=== PATIENT | female | born 1990 | race Two or more races ===

== ENCOUNTER 2018-05-07 00:11 | Emergency (ER) | payer OTHER ==
--- NOTE | 2018-05-07 00:19 | PDOC ---
History of Present Illness - History of Present Illness Initial Comments: 05/07/18 00:16 27 yo , aborta 1, at 23 wga, LMP 12/07/17, confirmed by TVUS with no significant pmh who p/w SWENSON, cough, fever. Patient reports 3 days of stable non productive cough, subjective fevers, tmax 98.0, and bifrontal, dull headache, with associated photphobia. SWENSON dull, radiating to posterior neck, with absent neck stiffness, nausea, phonophobia, lacrimation, convulsions, weakness, vision change, tinnitus. Pain not alleviated with Tylenol. Patient denies N/V, Palpitations, CP, SOB, urinary complaints, abdominal pain, diarrhea, constipation, hematuria, BPR, vaginal pain/bleeding/itching/discharge , lightheadedness, weakness, sensory changes. PMHx: as noted above ROS: as noted SHx: Denies Etoh, IVDA, tobacco use. F/w [employer] Work[employer]. Allergies: NKDA <Jaret Keys - Last Filed: 05/07/18 02:48> <Marguerite Aguilar - Last Filed: 05/09/18 12:22> - General Stated Complaint: COLD SYMPTOMS/HEADACHE Time Seen by Provider: 05/07/18 00:13 Past History <Jaret Keys - Last Filed: 05/07/18 02:48> <Marguerite Aguilar - Last Filed: 05/09/18 12:22> - Past Medical History Allergies/Adverse Reactions: Allergies Allergy/AdvReac Type Severity Reaction Status Date / Time No Known Allergies Allergy Verified 05/07/18 00:23 Home Medications: Ambulatory Orders NK [No Known Home Medication] 05/07/18 Review of Systems - Review of Systems Comments:: 05/07/18 00:16 GENERAL/CONSTITUTIONAL: + fever. No chills. No weakness. HEAD, EYES, EARS, NOSE AND THROAT: No change in vision. No ear pain or discharge. No sore throat. CARDIOVASCULAR: No chest pain or shortness of breath RESPIRATORY: +cough. No wheezing, or hemoptysis. GASTROINTESTINAL: No nausea, vomiting, diarrhea or constipation. GENITOURINARY: No dysuria, frequency, or change in urination. MUSCULOSKELETAL: No joint or muscle swelling or pain. No neck or back pain. SKIN: No rash NEUROLOGIC: + headache. No vertigo, loss of consciousness, or change in strength/sensation. ENDOCRINE: No increased thirst. No abnormal weight change HEMATOLOGIC/LYMPHATIC: No anemia, easy bleeding, or history of blood clots. ALLERGIC/IMMUNOLOGIC: No hives or skin allergy. <MassimoJaret - Last Filed: 05/07/18 02:48> *Physical Exam - Physical Exam Comments: 05/07/18 00:16 GENERAL: Awake, alert, and fully oriented, in no acute distress HEAD: No signs of trauma, normocephalic, atraumatic EYES: PERRLA, EOMI, sclera anicteric, conjunctiva clear ENT: Auricles normal inspection, hearing grossly normal, nares patent, oropharynx clear without exudates. Moist mucosa NECK: Normal ROM, supple, no lymphadenopathy, JVD, or masses LUNGS: No distress, speaks full sentences, clear to auscultation bilaterally HEART: Regular rate and rhythm, normal S1 and S2, no murmurs, rubs or gallops, peripheral pulses normal and equal bilaterally. ABDOMEN: Soft, nontender, normoactive bowel sounds. No guarding, no rebound. No masses EXTREMITIES : Normal inspection, Normal range of motion, no edema. No clubbing or cyanosis. NEUROLOGICAL: Cranial nerves II through XII grossly intact. Normal speech, normal gait, no focal sensorimotor deficits SKIN: Warm, Dry, normal turgor, no rashes or lesions noted <Garfield Keysson - Last Filed: 05/07/18 02:48> - Vital Signs Last Vital Signs Temp Pulse Resp BP Pulse Ox 97.8 F 81 18 114/61 100 05/07/18 00:23 05/07/18 00:23 05/07/18 00:23 05/07/18 00:23 05/07/18 00:23 <Marguerite Aguilar - Last Filed: 05/09/18 12:22> Moderate Sedation - Procedure Monitoring Vital Signs: Procedure Monitoring Vital Signs Temperature 97.8 F 05/07/18 00:23 Pulse Rate 81 05/07/18 00:23 Respiratory Rate 18 05/07/18 00:23 Blood Pressure 114/61 05/07/18 00:23 O2 Sat by Pulse Oximetry (%) 100 05/07/18 00:23 <Marguerite Aguilar - Last Filed: 05/09/18 12:22> ED Treatment Course - LABORATORY CBC & Chemistry Diagram: 05/07/18 01:00 05/07/18 01:00 <Jaret Keys - Last Filed: 05/07/18 02:48> - LABORATORY CBC & Chemistry Diagram: 05/07/18 01:00 05/07/18 01:00 - ADDITIONAL ORDERS Additional order review: 05/07/18 01:20 Urine Culture - Final Urine - Urine Clean Catch NO GROWTH OBTAINED 05/07/18 01:00 RBC 3.47 L MCV 94.3 MCHC 34.9 RDW 12.4 MPV 8.1 Neutrophils % 66.4 Lymphocytes % 21.4 Monocytes % 9.2 Eosinophils % 2.2 Basophils % 0.8 - Medications Given in the ED: ED Medications Discontinued Medications Generic Name Dose Route Start Last Admin Trade Name Freq PRN Reason Stop Dose Admin Acetaminophen 1,000 mg 05/07/18 00:41 05/07/18 01:32 Ofirmev Injection - IVPB 05/07/18 00:42 1,000 mg ONCE ONE Administration Diphenhydramine HCl 12.5 mg 05/07/18 00:41 05/07/18 01:32 Benadryl Injection - IVPUSH 05/07/18 00:42 12.5 mg ONCE ONE Administration Sodium Chloride 1,000 mls @ 1,000 mls/hr 05/07/18 00:41 05/07/18 01:32 Normal Saline - IV 05/07/18 01:40 1,000 mls/hr ASDIR STA Administration <Kingsley Aguilarie Charanjit - Last Filed: 05/09/18 12:22> Medical Decision Making - Medical Decision Making 05/07/18 00:30 27 yo , aborta 1, at 23 wga, LMP 12/07/17, confirmed by TVUS with no significant pmh who p/w SWENSON, cough, fever. + 3 days of stable non productive cough, subjective fevers, tmax 98.0, and bifrontal, dull headache. Vitals wnl, AF, A&Ox3. Denies N/V, abdominal pain, vaginal bleeding, lightheadedness, weakness, sensory change, convulsions. Physical exam unremarkable. Low suspicion of preclampsia. No evidence of meningitis, SAH, dural venous thrombosis. ED Course: CBC,CMP, Influenza 05/07/18 00:43 Tylenol, NS, Diphenhydramine 05/07/18 01:02 05/07/18 01:41 CBC,CMP: Unremarkable UA: Neg Flu: Neg 05/07/18 01:45 SWENSON improved Patient to go to L&D for monitoring 05/07/18 02:48 Patient evaluated / L&D consult, FHR ~130-140 Stable for d/c with return precautions Advised to f/u with [employer] Work[employer] PMD. <Jaret Keys - Last Filed: 05/07/18 02:48> *DC/Admit/Observation/Transfer - Discharge Dispostion Decision to Admit order: No - Attestations Physician Attestion: 05/07/18 00:16 I attest to the information provided in this note. <Jaret Keys - Last Filed: 05/07/18 02:48> <Marguerite Aguilar - Last Filed: 05/09/18 12:22> Diagnosis at time of Disposition: URI (upper respiratory infection) Headache in Qualifiers: Trimester: second trimester Qualified Code(s): O26.892 - Other specified related conditions, second trimester - Discharge Dispostion Disposition: HOME Condition at time of disposition: Stable - Patient Instructions Printed Discharge Instructions: DI for Common Cold Additional Instructions: Please return to the emergency department with any new or worsening symptoms or concerns. Please follow up with your primary care physician within 72 hours.
[2018-05-07 00:33] VITALS: BP 114/61; PULSE 81; TEMP 97.8; BMI 29.7
--- NOTE | 2018-05-07 00:40 | PDOC ---
Attending Attestation - Resident Resident Name: Jaret Keys - ED Attending Attestation I have performed the following: I have examined & evaluated the patient, The case was reviewed & discussed with the resident, I agree w/resident's findings & plan - HPI HPI: 05/07/18 01:27 [id number] 23 weeks A1, with no significant past medical history, who presents to the emergency department with, 3 days dull headache, cough, and subjective fevers (Tmax 98F). She denies recent photophobia, phonophobia, or dizziness. She denies recent nausea, vomit, diarrhea or constipation. She denies recent dysuria, frequency, urgency or hematuria. She denies recent chest pain or shortness of breath. no AP or VB No sick contacts or travel. No new changes in medications. Allergies: NKA Past Medical History: None Social history: Lives with family. No smoking. No alcohol. No illicit drugs. Surgical history: None LMP: 12/07/17 - Physicial Exam PE: 05/07/18 01:27 NAD, well appearing, PERRL, EOMI, MMM, nl conjunctiva, anicteric; neck supple. lungs clear, RRR, abdomen soft nontender. MARTINES x4, no focal neuro deficits. No peripheral edema. normal color for ethnicity, WWP. - Medical Decision Making 05/07/18 01:27 hpi as documented VS wnl, no fever well appearing, c/o sinus congestion IV tylenol and fluids for headache basic labs and lytes wnl, reassuring UA neg for infection. flu neg. no AP or VB likely viral syndrome, URI sx, supportive care and hydration, tylenol for pain PCP/OB followup 05/07/18 01:42
[2018-05-07] MEDS ORDERED: ACETAMINOPHEN 1000 MG/100 ML VIAL (NON FORMULARY) IVPB ONE (00:41)
[2018-05-07] MEDS ORDERED: SODIUM CHLORIDE 1,000 ML IV STA (00:41)
[2018-05-07 01:09] LABS: BASO % 0.8 % (0-2.0); EOS % 2.2 % (0-4.5); HEMATOCRIT 32.7 % (32.4-45.2); HEMOGLOBIN 11.4 GM/dL (10.7-15.3); LYMPH % 21.4 % (8-40); MCH 32.9 pg (25.7-33.7); MCHC 34.9 g/dl (32.0-36.0); MEAN CELL VOLUME 94.3 fl (80-96); MEAN PLT VOLUME 8.1 fl (7.5-11.1); MONO % 9.2 % (3.8-10.2); NEUT % 66.4 % (42.8-82.8); PLATELET COUNT 251 K/MM3 (134-434); RBC 3.47 M/mm3 (3.60-5.2); RDW 12.4 % (11.6-15.6); WHITE BLOOD COUNT 9.6 K/mm3 (4.0-10.0)
[2018-05-07] MEDS ORDERED: ACETAMINOPHEN INJECTION 100 ML IVPB ONE (01:10)
[2018-05-07 01:27] LABS: URINE APPEARANCE CLEAR; URINE BILIRUBIN NEGATIVE (<2.0 mg/dL); URINE COLOR LTYELLOW; URINE GLUCOSE (UA) NEGATIVE (NEGATIVE); URINE KETONE NEGATIVE (NEGATIVE); URINE LEUK ESTERASE NEGATIVE (NEGATIVE); URINE NITRITE NEGATIVE (NEGATIVE); URINE PROTEIN NEGATIVE (NEGATIVE); URINE UROBILINOGEN NEGATIVE mg/dL (0.2-1.0)
[2018-05-07 01:40] LABS: ALBUMIN 2.5 g/dl (3.4-5.0); ALK PHOS 61 U/L (45-117); ANION GAP 6 MMOL/L (8-16); BILIRUBIN,TOTAL 0.2 mg/dL (0.2-1); BLOOD UREA NITROGEN 9 mg/dL (7-18); CALCIUM 8.3 mg/dL (8.5-10.1); CHLORIDE 106 mmol/L (98-107); CO2 25 mmol/L (21-32); CREATININE 0.4 mg/dL (0.55-1.3); GLUCOSE,RANDOM 90 mg/dL (74-106); SGOT/AST 12 U/L (15-37); SGPT/ALT 14 U/L (13-61); SODIUM 137 mmol/L (136-145); TOT PROT 5.8 g/dl (6.4-8.2)
== END 2018-05-07 03:17 | disposition home or self-care (01) ==
LOC: JER 00:11
PROC: 3E033GC Introduction of Other Therapeutic Substance into Peripheral Vein, Percutaneous Approach (ICD-10-PCS; principal; 2018-05-07)
PROC: 3E033NZ Introduction of Analgesics, Hypnotics, Sedatives into Peripheral Vein, Percutaneous Approach (ICD-10-PCS; 2018-05-07)
DX: O26.892 Other specified pregnancy related conditions, second trimester (principal); R51 Headache; O99.512 Diseases of the respiratory system complicating pregnancy, second trimester; J06.9 Acute upper respiratory infection, unspecified; Z3A.23 23 weeks gestation of pregnancy
CPT/HCPCS: 36415; 80053; 81003; 85025; 87086; 87804; 96374; 96375; 99281-25; J0131; J7030

== ENCOUNTER 2018-09-01 06:20 | Inpatient (IN) | payer OTHER ==
[2018-09-01] MEDS ORDERED: OXYTOCIN 20 UNITS in 0.9% NS 20 UNIT/1,000 ML INFUS.BAG IV ONE (07:17)
[2018-09-01 07:43] VITALS: BMI 38.3
[2018-09-01] MEDS ORDERED: ePHEDrine SULFATE 50 MG/1 ML AMPULE ONE (08:05)
[2018-09-01] MEDS ORDERED: morphine SULFATE/Preservative Free 0.5 MG/ML (1cc Syringe) ONE (08:05)
--- NOTE | 2018-09-01 08:07 | HP ---
Past Medical History - Admission Chief Complaint: Elective History of Present Illness: 28 yo @ 39 weeks gestation, EDC 09/08/18, is pre op for primary . Patient admits to have hip problem and cannot push; prior shoulder dystocia with last . History Source: Patient Limitations to Obtaining History: No Limitations - Past Medical History ...: 3 ...Para: 1 ...Term: 1 ...: 0 ...Spon : 1 ...Induced : 0 ...Multiple Gestation: 0 ... Weeks Gestation by Dates: 39.0 ...EDC by Sono: 09/08/18 - Past Surgical History Past Surgical History: Yes: None Hx Myomectomy: No Hx Transabdominal Cerclage: No - Smoking History Smoking history: Never smoked Have you smoked in the past 12 months: No - Alcohol/Substance Use Hx Alcohol Use: No - Social History Usual Living Arrangement: Yes: With Significant Other History of Recent Travel: No Home Medications - Allergies Allergies/Adverse Reactions: Allergies Allergy/AdvReac Type Severity Reaction Status Date / Time No Known Allergies Allergy Verified 09/01/18 07:29 - Home Medications Home Medications: Ambulatory Orders Pnv No.95/Ferrous Fum/Folic AC [ Formula] 1 each PO DAILY 07/02/18 Family Disease History - Family Disease History Family History: Unremarkable Review of Systems - Review of Systems Constitutional: reports: No Symptoms Eyes: reports: No Symptoms HENT: reports: No Symptoms Neck: reports: No Symptoms Cardiovascular: reports: No Symptoms Respiratory: reports: No Symptoms Gastrointestinal: reports: No Symptoms Genitourinary: reports: Pain Breasts: reports: No Symptoms Reported Musculoskeletal: reports: No Symptoms Integumentary: reports: No Symptoms Neurological: reports: No Symptoms Endocrine: reports: No Symptoms Hematology/Lymphatic: reports: No Symptoms Psychiatric: reports: No Symptoms Pain Intensity: 2 Physical Exam - Maternity Vital Signs: Vital Signs Temperature 98.2 F 09/01/18 07:35 Pulse Rate 90 09/01/18 07:35 Respiratory Rate 20 09/01/18 07:35 Blood Pressure 124/83 09/01/18 07:35 O2 Sat by Pulse Oximetry (%) Constitutional: Yes: Well Nourished Eyes: Yes: Conjunctiva Clear HENT: Yes: Atraumatic Neck: Yes: Supple Cardiovascular: Yes: Regular Rate and Rhythm Lungs: Clear to auscultation - Abdominal Exam/OB Number of Fetuses: Single Presentation: Vertex - Vaginal Exam/OB Amniotic Membrane Status: Intact - Physical Exam ...Motor Strength: WNL Psychiatric: Yes: Alert, Oriented Problem List - Problems (1) Code(s): Z34.90 - ENCNTR FOR SUPRVSN OF NORMAL , UNSP, UNSP TRIMESTER Qualifiers: Weeks of gestation: 39 weeks Qualified Code(s): Z3A.39 - 39 weeks gestation of Assessment/Plan 39 weeks gestation Pre op for primary Prep and shave [place] catheter Consent signed Anesthesia to see patient
[2018-09-01] MEDS ORDERED: PROPOFOL 20 ML ONE (08:14)
[2018-09-01] MEDS ORDERED: ELECTROLYTE-148 SOLN 1,000 ML IV SCH ×2 (08:15)
[2018-09-01] MEDS ORDERED: SUCCINYLCHOLINE CHLORIDE 200 MG/10 ML VIAL ONE ×3 (08:16)
[2018-09-01] MEDS ORDERED: CITRIC ACID/SODIUM CITRATE 30 ML UNIT-DOSE CUP PO ONE (08:30)
[2018-09-01] MEDS ORDERED: OXYTOCIN 10 UNITS/ML VIAL ONE (08:53)
[2018-09-01] MEDS ORDERED: METHYLERGONOVINE MALEATE 0.2 MG/1 ML AMP IM PRN (09:16)
--- NOTE | 2018-09-01 09:20 | OP ---
Operative Note - Note: Operative Date: 09/01/18 Pre-Operative Diagnosis: Elective Operation: Primary Findings: Baby girl in LOT position Post-Operative Diagnosis: Same as Pre-op Surgeon: Mindy Dobbs General Purchasing Agent: Cordell Spears Anesthesia: Spinal Specimens Removed: Placenta Estimated Blood Loss (mls): 600 Operative Report Dictated: Yes
[2018-09-01] MEDS: OXYTOCIN 20 UNITS in 0.9% NS 20 UNIT/1,000 ML INFUS.BAG IV SCH ×2 (10:06→17:57)
[2018-09-01] MEDS ORDERED: ONDANSETRON 4 MG/2 ML VIAL IVPUSH PRN (10:12)
[2018-09-01] MEDS ORDERED: IBUPROFEN 800 MG/8 ML IJ IVPB ONE (10:28)
[2018-09-01] MEDS: IBUPROFEN 800 MG/8 ML IJ IVPB PRN ×2 (10:38→19:48)
[2018-09-01] MEDS: PRENATAL VITAMINS W/ FOLIC ACID TABLET (FP) PO SCH (12:06)
[2018-09-01] MEDS: FERROUS SO4 325 MG TABLET (FP) PO SCH ×2 (12:06→16:57)
[2018-09-02] MEDS: SIMETHICONE 80 MG TAB.CHEW (FP) PO PRN ×5 (03:17→21:23)
[2018-09-02] MEDS: IBUPROFEN 600 MG TABLET (FP) PO PRN ×5 (03:18→21:22)
[2018-09-02] MEDS: oxyCODONE HCL 5 MG TABLET PO PRN ×5 (03:18→21:23)
[2018-09-02] MEDS: FERROUS SO4 325 MG TABLET (FP) PO SCH ×2 (08:03→17:10)
[2018-09-02 08:06] LABS: BASO % 0.1 % (0-2.0); EOS % 1.1 % (0-4.5); HEMATOCRIT 28.2 % (32.4-45.2); HEMOGLOBIN 9.3 GM/dL (10.7-15.3); LYMPH % 13.8 % (8-40); MCH 29.6 pg (25.7-33.7); MEAN CELL VOLUME 89.6 fl (80-96); MEAN PLT VOLUME 8.1 fl (7.5-11.1); PLATELET COUNT 240 K/MM3 (134-434); RBC 3.15 M/mm3 (3.60-5.2); RDW 14.5 % (11.6-15.6); WHITE BLOOD COUNT 10.6 K/mm3 (4.0-10.0)
--- NOTE | 2018-09-02 08:14 | PN ---
Progress Note (short form) - Note Progress Note: Post op day#1.S/P C section under spinal anesthesia with duramorph uneventful.Patient stable and c/o little pain for she is on medication.No any anesthesia related problem.Patient DC from the anesthesia care.
--- NOTE | 2018-09-02 08:29 | PN ---
Post Progress Note - Subjective Subjective: 28 yo Para 2 status post primary , seen and evaluated. She c/o gas pain. Post Day: 2 Type of Delivery: Primary C/S Vital Signs: Vital Signs Temperature 98.5 F 09/02/18 06:00 Pulse Rate 100 H 09/02/18 06:00 Respiratory Rate 18 09/02/18 06:00 Blood Pressure 140/84 09/02/18 06:00 O2 Sat by Pulse Oximetry (%) 100 09/01/18 10:57 Breast Exam: Yes: Soft Uterus: Yes: Fundus Firm Incision: Yes: Dressing dry and intact Abdomen/GI: Yes: Abdomen soft, Tolerating PO Lochia: Yes: Rubra Lochia, amount: Small Extremities: Yes: Calves non-tender Activity: Ambulating Problem List - Problems (1) Code(s): Z34.90 - ENCNTR FOR SUPRVSN OF NORMAL , UNSP, UNSP TRIMESTER Qualifiers: Weeks of gestation: 39 weeks Qualified Code(s): Z3A.39 - 39 weeks gestation of (2) Status post primary low transverse section Code(s): Z98.891 - HISTORY OF UTERINE SCAR FROM PREVIOUS SURGERY Assessment/Plan Status post primary Ambulation Analgesia as needed Continue routine post op care
[2018-09-02] MEDS: PRENATAL VITAMINS W/ FOLIC ACID TABLET (FP) PO SCH (09:15)
[2018-09-02] MEDS ORDERED: BISACODYL 10 MG SUPP.RECT RC PRN (09:17)
[2018-09-03] MEDS: IBUPROFEN 600 MG TABLET (FP) PO PRN ×5 (01:06→23:11)
[2018-09-03] MEDS: oxyCODONE HCL 5 MG TABLET PO PRN ×5 (01:07→23:16)
[2018-09-03] MEDS: SIMETHICONE 80 MG TAB.CHEW (FP) PO PRN ×5 (01:07→23:10)
[2018-09-03] MEDS: FERROUS SO4 325 MG TABLET (FP) PO SCH ×2 (08:39→17:28)
[2018-09-03] MEDS: PRENATAL VITAMINS W/ FOLIC ACID TABLET (FP) PO SCH (10:36)
--- NOTE | 2018-09-03 11:00 | PN ---
Post Note - Post Date of Delivery: 09/01/18 Post Day: 2 Vital Signs: Vital Signs - 24 hr 09/02/18 09/03/18 22:00 08:51 Temperature 99.2 F 97.1 F L Pulse Rate 100 H 100 H Respiratory 18 18 Rate Blood Pressure 113/61 134/71 - Subjective Subjective: No Complaints - Objective Afebrile: Yes Breast: Not engorged Abdomen: Soft, Non-tender, Other (incision intact no drainage) Uterus: Fundus firm Vagina: Scant lochia Extremities: Non-tender - Assessment/Plan (1) Status post primary low transverse section Assessment: Other (POD2) Plan: Routine Care
--- NOTE | 2018-09-04 06:37 | DS ---
Physical Exam-REHAB DEPARTMENT MANAGER Vital Signs: Vital Signs Temperature 98.8 F 09/03/18 22:00 Pulse Rate 92 H 09/03/18 22:00 Respiratory Rate 18 09/03/18 22:00 Blood Pressure 123/71 09/03/18 22:00 O2 Sat by Pulse Oximetry (%) 100 09/03/18 09:00 Constitutional: Yes: Well Nourished, No Distress Gastrointestinal: Yes: WNL ....Post : Yes: Uterus firm, Uterus non-tender Breast(s): Yes: WNL Musculoskeletal: Yes: WNL Labs: CBC, BMP 09/02/18 07:00 Delivery - Delivery Section: Low Flap Transverse Type of Anesthesia: Spinal Episiotomy/Laceration: None EBL (cc): 600 Delivery, Single - Stages of Labor Date of Delivery: 09/01/18 Time of Delivery: 08:42 Time Placenta Delivered: 08:43 - Condition of Infant Teacher/Memorial Designer Present: Yes Name: Rocio Grace Infant Gender: Female Weight: 7 lb 6 oz Position: Left Total Hours ROM (Hrs/Mins): 0/01 - 1 Minute Total Score: 9 5 Minutes Total Score: 9 - [place] Feeding Plan Initial Plan: Elected not to breastfeed exclusively throughout hospitalization Discharge Summary Reason For Visit: ADMIT-C/S Current Active Problems (Acute) Status post primary low transverse section (Acute) Procedures: Principal: Low transverse Section Condition: Good - Instructions Referrals: Mindy Dobbs MD [Staff Physician] - Disposition: HOME - Home Medications Comprehensive Discharge Medication List: Ambulatory Orders Pnv No.95/Ferrous Fum/Folic AC [ Formula] 1 each PO DAILY 07/02/18 Ibuprofen [Motrin -] 600 mg PO QID #28 tablet 09/04/18
[2018-09-04 07:27] LABS: BASO % 0.3 % (0-2.0); EOS % 2.9 % (0-4.5); HEMATOCRIT 27.2 % (32.4-45.2); HEMOGLOBIN 9.1 GM/dL (10.7-15.3); LYMPH % 28.3 % (8-40); MCH 29.9 pg (25.7-33.7); MCHC 33.5 g/dl (32.0-36.0); MEAN CELL VOLUME 89.5 fl (80-96); MEAN PLT VOLUME 8.3 fl (7.5-11.1); MONO % 8.1 % (3.8-10.2); NEUT % 60.4 % (42.8-82.8); PLATELET COUNT 274 K/MM3 (134-434); RBC 3.04 M/mm3 (3.60-5.2); RDW 14.7 % (11.6-15.6); WHITE BLOOD COUNT 6.5 K/mm3 (4.0-10.0)
[2018-09-04 08:11] VITALS: BP 130/74; PULSE 90; TEMP 98.5
[2018-09-04] MEDS: FERROUS SO4 325 MG TABLET (FP) PO SCH (08:23)
[2018-09-04] MEDS: IBUPROFEN 600 MG TABLET (FP) PO PRN (08:23)
[2018-09-04] MEDS: oxyCODONE HCL 5 MG TABLET PO PRN (08:26)
[2018-09-04] MEDS: SIMETHICONE 80 MG TAB.CHEW (FP) PO PRN (08:27)
[2018-09-04] MEDS: PRENATAL VITAMINS W/ FOLIC ACID TABLET (FP) PO SCH (09:22)
--- NOTE | 2018-09-05 19:20 | PATH ---
Surgical Pathology Report Patient Name: CLAYTON SALAZAR Med. Rec. #: [id number] /Age/Gender: 1990 (Age: 28) / F Account: [id number] Location: [facility] OBS/TACTICAL/MOBILE WATCH OFFICER Taken: 09/01/2018 Received: 09/02/2018 Reported: 09/05/2018 Physicians: Mindy Dobbs M.D. Specimen(s) Received PLACENTA Clinical History Final Diagnosis PLACENTA, SECTION: 544 G THIRD TRIMESTER PLACENTA WITH MARGINALLY INSERTED TRIVASCULAR UMBILICAL CORD AND UNREMARKABLE PLACENTAL MEMBRANES. Electronically Signed Lashonda Orantes M.D. Gross Description The specimen is received fresh labeled placenta and is a 544 gram, 18 x 17 x 2.3 cm. placenta with attached membranes and umbilical cord. The attached membranes are clear and translucent. The umbilical cord measures 54 cm. in length and averages 1.2 cm. in diameter. The cord inserts marginally. No true knots or strictures are identified. Cut surface of the umbilical cord reveals 3 vessels. The surface is jackson-blue with minimal fibrin deposition and appropriate caliber vessels. The maternal surface is red-brown with focal defects. Sectioning reveals red-brown, spongy parenchyma. No lesions are identified. Supplies Packer sections are submitted in three cassettes as follows: 1- membrane rolls and umbilical cord; 2-3- full thickness sections of placenta. MLSZ/09/02/2018 sanml/09/02/2018
--- NOTE | 2018-09-06 21:09 | OP ---
DATE OF OPERATION: 09/01/2018 PREOPERATIVE DIAGNOSIS: Elective section at 39 weeks' gestation. POSTOPERATIVE DIAGNOSIS: Elective section at 39 weeks' gestation. PROCEDURE: Primary low transverse section and bilateral tubal ligation. SURGEON: Mindy Dobbs MD MEDICAL PHYSIOLOGIST: CHRISTINA Martin ANESTHESIA: Spinal. COMPLICATIONS: None. ESTIMATED BLOOD LOSS: 600 mL. DESCRIPTION OF PROCEDURE: Patient was taken to the operating room where spinal anesthesia was administered. Patient was then prepped and draped in proper sterile fashion. A Pfannenstiel skin incision was made and carried down through the underlying layer of fascia. The fascia was incised in the midline and extended laterally. The superior aspect of the fascial incision was then grasped with a Celia clamp, elevated, and the rectus muscles dissected off bluntly. Attention was then turned to the anterior aspect of the fascial incision which in a similar fashion was then grasped with Celia clamp, elevated, and the rectus muscle was dissected off bluntly. The rectus muscle was then in the midline, and the peritoneum identified and entered sharply with the Metzenbaum scissors. The peritoneal incision was extended superiorly and inferiorly with good visualization of the bladder. Then the vesicouterine peritoneum was then grasped with pickups and entered sharply with the Metzenbaum scissors. This incision was extended laterally, and a bladder flap created digitally. The bladder blade was then inserted, and the lower uterine segment was incised using a 10 blade. This incision was extended laterally, and the head was delivered atraumatically. Nose and mouth were suctioned and the cord clamped and cut. The was handed to the awaiting agronomy teacher. The placenta was removed manually. The uterus was exteriorized and cleared of all clots and debris. The uterine incision was repaired using 0 Biosyn in a running locked fashion. A second layer of the same suture was used as a means to provide excellent hemostasis. Then, the pelvis was then completely irrigated. The uterus was returned to the abdomen. The peritoneum was closed using 2-0 Biosyn. The fascia was reapproximated using 0 Vicryl in a running fashion. The skin was closed in a subcuticular fashion. Patient tolerated procedure well. Patient was then taken to PACU in stable condition. PATHOLOGY: Placenta. Nikki SZYMANSKI/[id number]
== END 2018-09-04 14:05 | disposition home or self-care (01) | DRG 540 ==
LOC: JLDR 06:20 → J3W 11:14
PROVIDERS: ADMIT Obstetrics & Gynecology; ATTEND Obstetrics & Gynecology
PROC: 10D00Z1 Extraction of Products of Conception, Low, Open Approach (ICD-10-PCS; principal; 2018-09-01)
DX: O82 Encounter for cesarean delivery without indication (principal); Z3A.39 39 weeks gestation of pregnancy; Z37.0 Single live birth
CPT/HCPCS: 36415; 80053; 85025; 85610; 85730; 86593; 86850; 86900; 86901; 88307-TC

== ENCOUNTER 2019-03-03 18:16 | Emergency (ER) | payer OTHER ==
[2019-03-03 18:50] VITALS: BP 115/70; PULSE 86; TEMP 98; BMI 25.8
--- NOTE | 2019-03-03 18:52 | PDOC ---
History of Present Illness - General Chief Complaint: Chest Pain Stated Complaint: CHEST PAIN History Source: Patient - History of Present Illness Initial Comments: 03/03/19 19:09 28 yo F no PMH presents with L sided chest pain and pressure that began 30 min prior to arrival.Pt states she was driving when she had this chest pressure rating 10/10 worse with breathing and did not change with position. Pt states the pain radiated to arm. She felt needles in her L arm. she also endorses nausea at the time, but no vomiting. Pt states at the moment the pain is improved at a 4/10. pt denies sob. pt denies a similar event in the past. pt states she was taking a muscle relaxant for back pain but last took this medication yesterday. Past History - Past Medical History Allergies/Adverse Reactions: Allergies Allergy/AdvReac Type Severity Reaction Status Date / Time No Known Allergies Allergy Verified 03/03/19 18:43 Home Medications: Ambulatory Orders Pnv No.95/Ferrous Fum/Folic AC [ Formula] 1 each PO DAILY 07/02/18 Ibuprofen [Motrin -] 600 mg PO QID #28 tablet 09/04/18 Anemia: No Asthma: No Cancer: No Cardiac Disorders: No COPD: No Diabetes: No HTN: No Seizures: No Thyroid Disease: No - Surgical History Abdominal Surgery: Yes (LIPO SUCTION) - Immunization History Immunization Up to Date: No - Psycho Social/Smoking Cessation Hx Smoking History: Unknown if ever smoked Have you smoked in the past 12 months: No Information on smoking cessation initiated: No Hx Alcohol Use: No Drug/Substance Use Hx: No Hx Substance Use Treatment: No *Physical Exam - Vital Signs Last Vital Signs Temp Pulse Resp BP Pulse Ox 98.0 F 86 18 115/70 100 03/03/19 18:42 03/03/19 18:42 03/03/19 18:42 03/03/19 18:42 03/03/19 18:42 ED Treatment Course - LABORATORY CBC & Chemistry Diagram: 03/03/19 18:54 03/03/19 18:54 Medical Decision Making - Medical Decision Making 03/03/19 19:42 28 yo F presenting with chest pain EKG : NSR, no ST changes -PERC 0 ; PE can be ruled out -CBC, CMP -cardiac profile 03/03/19 19:43 -CXR no acute process 03/03/19 20:05 - bmp reviewed, trop negative 03/03/19 22:06 -d dimer negative -rpt trop negative 03/03/19 22:43 Discharge - Discharge Information Problems reviewed: Yes Clinical Impression/Diagnosis: Chest pain Qualifiers: Chest pain type: chest pain on breathing Qualified Code(s): R07.1 - Chest pain on breathing; R07.81 - Pleurodynia Condition: Improved Disposition: HOME - Admission No - Follow up/Referral - Patient Discharge Instructions Patient Printed Discharge Instructions: DI for Atypical Chest Pain Additional Instructions: You came into the hospital for chest pain. Your EKG and blood work were within normal limits. You should follow up with your primary physician within 1 week to monitor your improvement. You may take ibuprofen for your pain every 8 hours. If you have new, worsening, or alarming symptoms please return to the ED. - Post Discharge Activity
[2019-03-03 19:29] LABS: BASO % 0.3 % (0-2.0); EOS % 1.3 % (0-4.5); MCH 29.5 pg (25.7-33.7); MCHC 32.6 g/dl (32.0-36.0); MEAN CELL VOLUME 90.6 fl (80-96); MEAN PLT VOLUME 8.3 fl (7.5-11.1); MONO % 7.4 % (3.8-10.2); PLATELET COUNT 335 K/MM3 (134-434); RBC 4.42 M/mm3 (3.60-5.2); RDW 14.1 % (11.6-15.6); WHITE BLOOD COUNT 7.9 K/mm3 (4.0-10.0)
--- NOTE | 2019-03-03 19:40 | PDOC ---
Attending Attestation - Resident Resident Name: Marisol Barton - ED Attending Attestation I have performed the following: I have examined & evaluated the patient, The case was reviewed & discussed with the resident, I agree w/resident's findings & plan, Exceptions are as noted - HPI HPI: 03/03/19 19:35 Ms. Llanos is a 28 yo F no PMH presents with L sided chest pain and pressure that began 30 min prior to arrival to the emergency department. Symptoms began while driving. Patient states her pain is located in the left anterior chest, pain is rated 10/ 10 and is worse with breathing No exertional changes. No changes with positioning. Pain radiates to the arm (+) nausea at the time, but no vomiting. Pt states at the moment the pain is improved at a 4/10. pt denies sob. pt denies a similar event in the past. pt states she was taking a muscle relaxant for back pain but last took this medication yesterday. - Physicial Exam PE: 03/03/19 19:40 GENERAL: The patient is in no acute distress. ENT: Ears normal, nares patent, oropharynx clear without exudates. Moist mucous membranes. No tonsillar enlargement, no exudates NECK: Normal range of motion, supple, no nuchal rigidity (+) LAD LUNGS: Breath sounds equal, clear to auscultation bilaterally. No wheezes, and no crackles. HEART:Regular rate and rhythm, normal S1 and S2 without murmur, rub or gallop. ABDOMEN: Soft, nontender, normoactive bowel sounds. EXTREMITIES: Normal range of motion, no edema. NEUROLOGICAL: Cranial nerves II through XII grossly intact. Normal speech. No focal neurological deficits. SKIN: Warm, Dry, normal turgor, no rashes or lesions noted. - Medical Decision Making 03/03/19 20:11 EKG: Twelve-lead EKG was performed and reviewed by me. There is normal sinus rhythm with a normal rate of 79. The axis is normal. The intervals are normal. There are no ST or T wave abnormalities. Impression: Normal twelve-lead EKG 03/03/19 20:13 03/03/19 20:15 Laboratory Tests 03/03/19 03/03/19 03/03/19 18:54 18:54 18:54 WBC 7.9 Hgb 13.0 Hct 40.0 D Plt Count 335 D INR 1.03 BUN 12.6 Creatinine 0.6 Troponin I < 0.02 Serum , Qual 03/03/19 18:54 WBC Hgb Hct Plt Count INR BUN Creatinine Troponin I Serum , Qual Negative Chest x-ray: No pleural effusion, no consolidation, mediastium is normal, no infiltrate 03/03/19 21:58 Laboratory Tests 03/03/19 18:00 D-Dimer < 215 Of note, after more history obtained, patient is concerned because she found out that another patient who had similar procedure to her ended up dying because "something went to her lung" Patient states pain currently is 07/2703/03/19 22:42 Laboratory Tests 03/03/19 21:58 Troponin I < 0.02 Clinical impression: Chest pain, initial presentation
[2019-03-03 19:52] LABS: INR 1.03 (0.83-1.09); PROTHROMBIN TIME (PATIENT) 12.2 SEC (9.7-13.0)
[2019-03-03 19:55] LABS: ACTIVATED PTT 32.3 SECONDS (25.2-36.5)
[2019-03-03 20:02] LABS: ALBUMIN 3.5 g/dl (3.4-5.0); ALK PHOS 66 U/L (45-117); ANION GAP 5 MMOL/L (8-16); BILIRUBIN,TOTAL < 0.1 mg/dL (0.2-1); BLOOD UREA NITROGEN 12.6 mg/dL (7-18); CALCIUM 8.9 mg/dL (8.5-10.1); CHLORIDE 108 mmol/L (98-107); CO2 25 mmol/L (21-32); CREATININE 0.6 mg/dL (0.55-1.3); GLUCOSE,RANDOM 88 mg/dL (74-106); MAGNESIUM 2.1 mg/dL (1.8-2.4); N-TERMINAL BNP 11.9 pg/ml (5-125); PHOSPHOROUS 3.7 mg/dL (2.5-4.9); POTASSIUM 4.1 mmol/L (3.5-5.1); SGOT/AST 14 U/L (15-37); SGPT/ALT 19 U/L (13-61); SODIUM 138 mmol/L (136-145); TOT PROT 6.7 g/dl (6.4-8.2)
[2019-03-03] MEDS ORDERED: IBUPROFEN 400 MG TABLET (FP) PO ONE ×2 (21:10→21:53)
--- NOTE | 2019-03-05 20:17 | EKG ---
Test Reason : Blood Pressure : / mmHG Vent. Rate : 079 BPM Atrial Rate : 079 BPM P-R Int : 198 ms QRS Dur : 086 ms QT Int : 370 ms P-R-T Axes : 039 061 030 degrees QTc Int : 424 ms NORMAL SINUS RHYTHM ST ELEVATION, CONSIDER EARLY REPOLARIZATION NO PREVIOUS ECGS AVAILABLE Confirmed by HUMERA RUFF MD ([id number]) on 03/05/2019 8:16:43 PM Referred By: Confirmed By:HUMERA RUFF MD
== END 2019-03-03 22:44 | disposition home or self-care (01) ==
LOC: JER 18:16
DX: R07.81 Pleurodynia (principal); R07.1 Chest pain on breathing
CPT/HCPCS: 36415; 71045-TC-FY; 80053; 83735; 83880; 84100; 84484; 84703; 85025; 85379; 85610; 85730; 93005; 93010; 99285-25

== ENCOUNTER 2020-05-06 14:19 | Emergency (ER) | payer SELFPAY ==
[2020-05-06 15:00] VITALS: BP 107/73; PULSE 72; TEMP 98.6; BMI 28.2
[2020-05-06 16:14] LABS: THROAT:GRP A STREP ANTIGEN Negative (Negative)
== END 2020-05-06 16:21 | disposition home or self-care (01) ==
LOC: JER 14:19
DX: R51.9 Headache, unspecified (principal); J02.9 Acute pharyngitis, unspecified
CPT/HCPCS: 87070; 87880; 99284-25; C9803; U0003

== ENCOUNTER 2022-03-23 19:36 | Emergency (ER) | payer OTHER ==
[2022-03-23 19:45] VITALS: BP 111/74; PULSE 93; RESP 20; TEMP 98.4; BMI 32.3
[2022-03-23 21:03] LABS: EPI CELLS 1 /uL (0-25.1); HYALINE CASTS 1 /uL (0-3.1); URINE APPEARANCE CLOUDY; URINE BACTERIA >9,000 /uL (0-1359); URINE BILIRUBIN NEGATIVE (NEGATIVE); URINE COLOR YELLOW; URINE GLUCOSE (UA) NEGATIVE (NEGATIVE); URINE KETONE NEGATIVE (NEGATIVE); URINE LEUK ESTERASE 2+ (NEGATIVE); URINE NITRITE NEGATIVE (NEGATIVE); URINE PROTEIN 1+ (NEGATIVE); URINE RBC 246 /uL (0-23.9); URINE UROBILINOGEN 0.2 mg/dL (0.2-1.0); URINE WBC 981 /uL (0-25.8)
[2022-03-23 21:24] LABS: HCG,QUALITATIVE URINE Negative
[2022-03-23] MEDS ORDERED: CEFTRIAXONE 1,000 MG in DEXTROSE 5%-WATER - 50 ML IVPB ONE (21:36)
[2022-03-23] MEDS ORDERED: ACETAMINOPHEN 1000 MG/100 ML BAG IVPB ONE (21:36)
[2022-03-23] MEDS ORDERED: ACETAMINOPHEN INJECTION 100 ML IVPB ONE (21:43)
[2022-03-23] MEDS ORDERED: CEFTRIAXONE 1 GM/50 ML BAG ONE (21:43)
[2022-03-23 22:38] LABS: BASO % 0.2 % (0-2.0); EOS % 0.3 % (0-4.5); HEMATOCRIT 41.1 % (32.4-45.2); HEMOGLOBIN 13.5 GM/dL (10.7-15.3); LYMPH % 16.5 % (8-40); MCH 30.5 pg (25.7-33.7); MCHC 32.8 g/dl (32.0-36.0); MEAN PLT VOLUME 8.4 fl (7.5-11.1); MONO % 5.7 % (3.8-10.2); NEUT % 77.3 % (42.8-82.8); PLATELET COUNT 383 10^3/uL (134-434); RBC 4.42 M/mm3 (3.60-5.2); WHITE BLOOD COUNT 15.4 K/mm3 (4.0-10.0)
[2022-03-23] MEDS ORDERED: SODIUM CHLORIDE 1,000 ML IV STA (22:55)
[2022-03-23 22:58] LABS: BLOOD UREA NITROGEN 11.1 mg/dL (7-18)
[2022-03-23 23:01] LABS: CREATININE 0.7 mg/dL (0.55-1.3)
[2022-03-23 23:03] LABS: BILIRUBIN,TOTAL 0.3 mg/dL (0.2-1); TOT PROT 7.7 g/dl (6.4-8.2)
[2022-03-23] MEDS ORDERED: KETOROLAC TROMETHAMINE 15 MG/ML VIAL ONE (23:39)
[2022-03-23] MEDS ORDERED: KETOROLAC TROMETHAMINE 15 MG/ML VIAL IVPUSH ONE (23:39)
== END 2022-03-23 23:42 | disposition home or self-care (01) ==
LOC: JERFT 19:36 → JER 19:36 → JERFT 23:42
PROC: 3E033GC Introduction of Other Therapeutic Substance into Peripheral Vein, Percutaneous Approach (ICD-10-PCS; principal; 2022-03-23)
DX: N12 Tubulo-interstitial nephritis, not specified as acute or chronic (principal)
CPT/HCPCS: 36415; 74176-TC; 80053; 81003; 84703; 85025; 87040; 87086; 87186; 99285-25